=== PATIENT | male | born 1970 | race African-American/Black ===

== ENCOUNTER 2016-11-16 10:33 | Emergency (ER) | payer OTHER, MEDICAID ==
[~2016-11-16] VITALS: Ht 175.3 cm; Wt 90.0 kg
[2016-11-16] MEDS ORDERED: AMLO2.5T45 PO (10:37)
[2016-11-16] MEDS ORDERED: KETOROLAC 60MG/2ML VIAL IM ONE (15:00)
[2016-11-16] MEDS ORDERED: HYDROCODONE/ACETAMINOPHEN 10/325MG TABLET PO ONE (17:00)
[2016-11-16 20:30] VITALS: BP 165/88
== END 2016-11-16 20:31 | disposition home or self-care (01) ==
LOC: ER 11:09
DX: M25.462 Effusion, left knee (principal); I10 Essential (primary) hypertension; F17.210 Nicotine dependence, cigarettes, uncomplicated
CPT/HCPCS: 73560; 96372; 99284; J1885; L1830